=== PATIENT | female | born 1995 | race African-American/Black ===

== ENCOUNTER 2022-05-10 19:25 | Emergency (ER) | payer OTHER ==
[~2022-05-10] VITALS: Ht 162.6 cm; Wt 76.7 kg
[2022-05-10] MEDS ORDERED: FAMOTIDINE 20 MG TAB PO ONE (19:45)
[2022-05-10] MEDS ORDERED: IBUPROFEN200 MG PO (19:51)
[2022-05-10] MEDS ORDERED: ACETAMINOPHEN500 MG PO (19:51)
[2022-05-10] MEDS ORDERED: DIPHENHYDRAMINE50 M1 PO (19:51)
[2022-05-10] MEDS ORDERED: DEXAMETHASONE SOD PHOS INJ 4 MG/ML SDV ONE (19:57)
[2022-05-10] MEDS ORDERED: FAMOTIDINE 20 MG TAB ONE (19:57)
[2022-05-10 20:00] VITALS: BP 124/76
[2022-05-10] MEDS ORDERED: DEXAMETHASONE SOD PHOS INJ 4 MG/ML SDV IM ONE (20:00)
== END 2022-05-10 20:00 | disposition home or self-care (01) ==
LOC: FSED 19:39
DX: T63.441A Toxic effect of venom of bees, accidental (unintentional), initial encounter (principal); F17.200 Nicotine dependence, unspecified, uncomplicated
CPT/HCPCS: 96372; 99282; J1100